=== PATIENT | male | born 1985 | race Asian ===

== ENCOUNTER → 2021-07-20 | Outpatient (CLI) | payer OTHER ==
--- NOTE | 2021-07-20 14:37 | KCIC ---
EXAMINATION: Magnetic resonance imaging (MRI) of the lumbar spine without contrast 07/20/2021 10:45 AM HISTORY: Chronic pain down the right leg TECHNIQUE: Multiplanar multi-weighted MRI of the lumbar spine was performed without intravenous contr ast using the standard lumbar spine protocol. Contrast information: None administered. COMPARISON: None available. FINDINGS: There is 1 mm retrolisthesis of L5 on S1. Vertebral bodies demonstrate normal signal intensity on al l sequences. There are no compression fractures. The conus medullaris terminates at the level of L1 . The distal spinal cord signal intensity is normal. Mild to moderate disc height loss at L5-S1 with disc desiccation and annular fissure. Limited views of the abdomen and pelvis show no soft tissue ab normality. The aorta is normal. L1-L2: The disc is normal in configuration. There is no facet arthropathy. There is no neuroforaminal stenosis. There is no spinal canal stenosis. L2-L3: The disc is normal in configuration. There is no facet arthropathy. There is no neuroforaminal stenosis. There is no spinal canal stenosis. L3-L4: The disc is normal in configuration. There is no facet arthropathy. There is no neuroforaminal stenosis. There is no spinal canal stenosis. L4-L5: The disc is normal in configuration. There is no facet arthropathy. There is no neuroforaminal stenosis. There is no spinal canal stenosis. L5-S1: There is a disc bulge with left central disc extrusion extending caudally. Mild mass effect on left lateral recess. There is mild facet arthropathy, left greater than right. No neuroforaminal jarrell nosis. Mild spinal canal stenosis. IMPRESSION: Left central disc extrusion at L5-S1 with mild mass effect on left lateral recess. Electronically signed by: Magi Drummond MD (07/20/2021 2:35 PM) [id number]
== END ==
LOC: KCIC MRI 10:32
PROVIDERS: ATTEND Family Medicine Sports Medicine
DX: M51.27 Other intervertebral disc displacement, lumbosacral region (principal); M48.8X7 Other specified spondylopathies, lumbosacral region; M43.17 Spondylolisthesis, lumbosacral region; M51.37 Other intervertebral disc degeneration, lumbosacral region; M51.16 Intervertebral disc disorders with radiculopathy, lumbar region
CPT/HCPCS: 72148